=== PATIENT | male | born 1970 | race Caucasian/White ===

== ENCOUNTER 2019-11-11 13:33 | Outpatient (CLI) | payer OTHER, MEDICARE ==
--- NOTE | 2019-11-11 15:20 | MRI ---
EXAM: MRI of the abdomen without and with contrast COMPARISON: 05/22/2018 HISTORY: Complex renal cyst. TECHNIQUE: Multiplanar multi sequence MR images were taken of the abdomen without and with IV contras t. FINDINGS: Liver: No focal liver lesions or intrahepatic ductal dilatation. Normal signal without dropout on out of phase images. No abnormal enhancement. Gallbladder: No filling defects or gallbladder wall thickening. Common bile duct: Normal caliber without filling defects Adrenal glands: Unremarkable. Kidneys: 3 adjacent cysts in the lower pole the right kidney measuring up to 3.2 cm in size. No abnor mal areas of enhancement. Spleen: Unremarkable. Pancreas: Unremarkable. No abnormal enhancement. Retroperitoneum: No enlarged lymph nodes Bones: No marrow signal abnormality. IMPRESSION: 3 adjacent right renal cysts.
== END 2019-11-11 13:34 | disposition home or self-care (01) ==
LOC: BICMRI 13:33
PROVIDERS: ATTEND Internal Medicine Gastroenterology
DX: N28.1 Cyst of kidney, acquired (principal)
CPT/HCPCS: 74183

== ENCOUNTER 2021-09-28 08:33 | Outpatient (CLI) | payer OTHER, MEDICARE | END 2021-09-28 08:34 | disposition home or self-care (01) | LOC: MRI 08:33 | PROVIDERS: ATTEND Psychiatry & Neurology Psychiatry | DX: F28 Other psychotic disorder not due to a substance or known physiological condition (principal); F06.30 Mood disorder due to known physiological condition, unspecified; S09.90XS Unspecified injury of head, sequela | CPT/HCPCS: 70553 ==

== ENCOUNTER 2022-02-09 15:55 | Emergency (ER) | payer BC, MEDICARE ==
[2022-02-09] MEDS ORDERED: Lorazepam 1 MG TAB ONE (17:34)
[2022-02-09 17:51] LABS: #Lymphocytes 1.5 thou/uL (1.20-3.40); #Monocytes 0.4 thou/uL (0.11-0.59); #Neutrophils 3.9 thou/uL (1.40-6.50); %Basophils 0.8 % (0.0-1.0); %Eosinophils 0.3 % (0.0-10.0); %Lymphocytes 25.5 % (21.0-51.0); %Monocytes 7.3 % (0.0-10.0); %Neutrophils 66.1 % (42.0-75.0); Hemoglobin 15.2 g/dL (14.0-18.0); Mean Corpuscular HGB CONC 34.4 g/dL (32.0-36.0); Mean Corpuscular Hemoglobin 33.1 pg (27.0-31.0); Mean Corpuscular Volume 96.2 fL (78.0-98.0); Mean Platelet Volume 8.5 fL (7.4-10.4); Platelet Count 206 thou/uL (130-400); RBC Distribution Width 11.1 % (11.5-14.5); Red Blood Cell (RBC) Count 4.59 mill/uL (4.70-6.10); White Blood Cell (WBC) Count 5.9 thou/uL (4.8-10.8)
[2022-02-09 18:14] LABS: ALT (SGPT) 23 U/L (8-55); AST (SGOT) 21 U/L (5-34); Acetaminophen Less than 10.0 mcg/mL (10.0-30.0); Albumin 4.7 g/dL (3.5-5.0); Alcohol Less than 10 mg/dL (Less than 10); Alkaline Phosphatase 60 U/L (40-110); Anion Gap 21 mmol/L (10-20); BUN (Urea Nitrogen) 10 mg/dL (8.9-20.6); Bilirubin, Total 0.5 mg/dL (0.2-1.2); Calc. Creatinine Clearance 0 mL/min (70-130); Calcium 9.7 mg/dL (7.8-10.44); Carbon Dioxide 18 mmol/L (22-29); Chloride 101 mmol/L (98-107); Globulin 2.4 g/dL (2.4-3.5); Glucose 134 mg/dL (70-105); Potassium 3.4 mmol/L (3.5-5.1); Protein, Total 7.1 g/dL (6.0-8.3); Salicylate Less than 8.0 mg/dL (15.0-30.0); Sodium 137 mmol/L (136-145)
[2022-02-09 18:55] LABS: Bilirubin Negative (Negative); Blood, Urine Negative (Negative); Clarity Clear (Clear); Glucose, Urine (Dipstick) Normal (Negative); Ketone, Urine Negative (Negative); Leukocyte Negative Leu/uL (Negative); Nitrite Negative (Negative); Protein, Urine (Dipstick) Negative (Neg-Trace); Specific Gravity, Urine 1.007 (1.002-1.036); Urobilinogen Normal mg/dL (Less than 2)
[2022-02-09 19:05] LABS: Amphetamine Detected (NotDetected); Barbiturates Screen Not Detected (NotDetected); Benzodiazepine Screen Not Detected (NotDetected); Cocaine Metabolite Screen Not Detected (NotDetected); Methadone Not Detected (NotDetected); Methamphetamine Not Detected (NotDetected); Opiate Screen Not Detected (NotDetected); Oxycodone Screen Not Detected (NotDetected); Phencyclidine (PCP) Not Detected (NotDetected); THC/Cannabinoid Screen Detected (NotDetected); Tricyclic Screen Not Detected (NotDetected)
== END 2022-02-09 22:00 | disposition home or self-care (01) ==
LOC: ERS 15:55
DX: R44.3 Hallucinations, unspecified (principal)
CPT/HCPCS: 36415; 80053; 80306; 80307; 81003; 82550; 85025; 99285

== ENCOUNTER 2022-11-16 06:04 | Day surgery (SDC) | payer BC, MEDICARE ==
[2022-11-14 10:36] VITALS: BMI 24.3
[2022-11-16] MEDS ORDERED: Midazolam HCl 2 mg/2 ml Vial ONE ×2 (07:28→07:39)
[2022-11-16] MEDS ORDERED: Fentanyl 100 MCG/2 ML VIAL ONE (07:39)
[2022-11-16] MEDS ORDERED: Fleet Enema 133 ML BOT PR SCH (08:00)
[2022-11-16] MEDS ORDERED: PROPOFOL 200 MG/20 ML VIAL ONE (08:08)
[2022-11-16] MEDS ORDERED: Lidocaine 1% PF 5 ML VIAL ONE (08:08)
== END 2022-11-16 10:10 | disposition home or self-care (01) ==
LOC: SDC 06:04
PROVIDERS: ATTEND Internal Medicine Gastroenterology
PROC: 0DB78ZX Excision of Stomach, Pylorus, Via Natural or Artificial Opening Endoscopic, Diagnostic (ICD-10-PCS; principal; 2022-11-16)
PROC: 0DB58ZX Excision of Esophagus, Via Natural or Artificial Opening Endoscopic, Diagnostic (ICD-10-PCS; principal; 2022-11-16)
PROC: 0DBH8ZX Excision of Cecum, Via Natural or Artificial Opening Endoscopic, Diagnostic (ICD-10-PCS; principal; 2022-11-16)
PROC: 0DBN8ZX Excision of Sigmoid Colon, Via Natural or Artificial Opening Endoscopic, Diagnostic (ICD-10-PCS; principal; 2022-11-16)
PROC: 0DBP8ZX Excision of Rectum, Via Natural or Artificial Opening Endoscopic, Diagnostic (ICD-10-PCS; principal; 2022-11-16)
DX: Z12.11 Encounter for screening for malignant neoplasm of colon (principal); D12.0 Benign neoplasm of cecum; D12.5 Benign neoplasm of sigmoid colon; D12.8 Benign neoplasm of rectum; K22.70 Barrett's esophagus without dysplasia; K29.70 Gastritis, unspecified, without bleeding; K44.9 Diaphragmatic hernia without obstruction or gangrene; K57.30 Diverticulosis of large intestine without perforation or abscess without bleeding; Z86.010 Personal history of colon polyps; Z79.899 Other long term (current) drug therapy
CPT/HCPCS: 88305; J2250; J2704; J3010

== ENCOUNTER 2024-03-27 08:06 | Outpatient (CLI) | payer BC, MEDICARE ==
[2024-03-27] MEDS ORDERED: Iopamidol 370 76% 100 ML VIAL ONE (10:45)
== END 2024-03-27 08:07 | disposition home or self-care (01) ==
LOC: CT 08:06
PROVIDERS: ATTEND Urology
DX: C61 Malignant neoplasm of prostate (principal); N28.1 Cyst of kidney, acquired; R91.1 Solitary pulmonary nodule
CPT/HCPCS: 71260; 74178; 78306; A9503; Q9967